=== PATIENT | male | born 1940 | race Caucasian/White ===

== ENCOUNTER 2021-01-13 10:26 | Outpatient (REF) | payer MEDICARE, OTHER, SELFPAY ==
[2021-01-13 12:03] LABS: Hematocrit 43.4 % (42-52); Hemoglobin 14.4 g/dl (14.0-18.0); Mean Corpuscular HGB Conc 33.2 g/dl (31.0-36.0); Mean Corpuscular Hemoglobin 31.7 pg (27.0-33.0); Mean Corpuscular Volume 95.6 fL (80-98); Mean Platelet Volume 9.8 fL (9.4-12.4); Platelet Count 225 X10*3/uL (160-400); Red Blood Count 4.54 X10*6/uL (4.60-5.80); Red Cell Distribution Width 12.4 % (11.0-16.0); White Blood Count 7.4 X10*3/uL (4.8-10.8)
[2021-01-13 12:40] LABS: Alanine Aminotransferase 8 U/L (0-40); Albumin Level 4.2 g/dL (3.5-5.0); Alkaline Phosphatase 81 U/L (39-117); Anion Gap 12 (12-20); Aspartate Amino Transferase 15 U/L (5-37); Bilirubin Direct 0.3 mg/dL (0.0-0.5); Bilirubin Total 0.7 mg/dL (0.0-1.0); Blood Urea Nitrogen 17 mg/dL (9-16); Calcium 9.3 mg/dL (8.4-10.2); Carbon Dioxide 28 mmol/L (22-29); Chloride 104 mmol/L (96-108); Cholesterol 194 mg/dL; Estimated Glomerular Filt Rate 59; Glucose Fasting 87 mg/dL (60-99); HDL Cholesterol 46 mg/dL; LDL Cholesterol Calculated 122 mg/dl; Potassium 4.5 mmol/L (3.3-5.1); Sodium 139 mmol/L (135-145); Total Protein 6.7 g/dL (6.5-8.0); Triglycerides 131 mg/dL
[2021-01-13 12:43] LABS: TSH reflex Free T4 0.95 uIU/mL (0.32-4.0)
== END 2021-01-13 10:27 | disposition home or self-care (01) ==
LOC: HO.WFDLDS 10:26
PROVIDERS: Visit Provider Hospitalist
DX: Z00.00 Encounter for general adult medical examination without abnormal findings (principal)
CPT/HCPCS: 36415; 80048; 80061; 80076; 84443; 85027